=== PATIENT | female | born 1990 | race Caucasian/White ===

== ENCOUNTER → 2021-07-24 11:14 | Outpatient (CLI) | payer OTHER, SELFPAY ==
--- NOTE | ~2021-07-24 | US_ITS ---
EXAMINATION: US OB <= 14 weeks fetus DATE: 07/24/2021 12:07 INDICATION: First trimester dating TECHNIQUE: Real-time pelvic transabdominal and transvaginal ultrasound was performed. COMPARISON: None. FINDINGS: The uterus measures 9.5 x 6.2 x 6.8 cm. There is an intrauterine gestational sac. A yolk s ac is identified. heart motion is identified measuring 177 beats per minute (bpm) by M-mode Dop pler. The crown rump length measures 2.5 cm , which correlates with an estimated gestational ag e of 9 weeks and 1 day(s) (+/-) 6 day(s). The ovaries are not visualized however no adnexal abnormality is seen. There is no free fluid in the pelvis. IMPRESSION: 1. Live intrauterine with an estimated gestational age of 9 weeks and 1 day(s) (+/-) 6 day( s) and an estimated delivery date of 02/25/2022. Reviewed, dictated and finalized at location B. IMPRESSION: 1. Live intrauterine with an estimated gestational age of 9 weeks and 1 day(s) (+/-) 6 day(s) and an estimated delivery date of 02/25/2022.
== END ==
PROVIDERS: Visit Provider Obstetrics & Gynecology
DX: Z36.89 Encounter for other specified antenatal screening (principal); Z3A.09 9 weeks gestation of pregnancy
CPT/HCPCS: 76801

== ENCOUNTER 2021-09-08 08:34 | Outpatient (CLI) | payer OTHER, SELFPAY ==
--- NOTE | ~2021-09-08 | US_ITS ---
EXAMINATION: US OB follow up DATE: 09/08/2021 09:19 INDICATION: Bleeding in . TECHNIQUE: Real-time ultrasound of the pelvis was performed. COMPARISON: Ultrasound 07/24/2021 FINDINGS: There is a single living fetus in breech presentation. The placenta is posterior. heart rate i s 163 beats per minute (bpm). The amniotic fluid volume is subjectively normal. The following biometric data were obtained: Biparietal diameter (BPD): 3.2 cm; head circumference (HC): 12.0 cm; abdominal circumference (AC): 10 .2 cm; femur length (FL): 2.0 cm. These measurements are concordant. Estimated weight is 144 g +/- 22 g, which correlates with the 65th percentile when 02/25/22 is us ed as estimated date of delivery. As single measurements, these parameters are each equal to the following estimated gestational ages: BPD: 16 weeks 0 days. HC: 16 weeks 0 days. AC: 16 weeks 1 days. FL: 16 weeks 0 days. estimated gestational age based solely on measurements from this exam is 16 weeks 0 days +/- 1 weeks 1 days. IMPRESSION: 1. Single living fetus in breech presentation. 2. Estimated weight is 144 g +/- 22 g, which correlates with the 65th percentile when 02/25/22 i s used as estimated date of delivery. This date was set by ultrasound on 07/24/2021. Reviewed, dictated and finalized at location A. UNLOADER IMPRESSION: 1. Single living fetus in breech presentation. 2. Estimated weight is 144 g +/- 22 g, which correlates with the 65th pe rcentile when 02/25/22 is used as estimated date of delivery. This date was set b y ultrasound on 07/24/2021.
== END 2021-09-08 08:35 | disposition home or self-care (01) ==
PROVIDERS: PCP Family Medicine; Visit Provider Obstetrics & Gynecology
DX: O26.852 Spotting complicating pregnancy, second trimester (principal)
CPT/HCPCS: 36415; 76816; 85461; 90384; 96372; J2790

== ENCOUNTER 2021-09-08 10:07 | Outpatient (RCR) | payer OTHER, SELFPAY ==
[2021-09-08] MEDS: RHO(D) IMMUNE GLOBULIN 300 MCG/2 ML SYRINGE IM (17:25)
== END 2021-09-22 10:20 | disposition home or self-care (01) ==
LOC: ANHLAB 10:07
PROVIDERS: PCP Family Medicine; Visit Provider Obstetrics & Gynecology
DX: O26.852 Spotting complicating pregnancy, second trimester (principal); Z29.13 Encounter for prophylactic Rho(D) immune globulin; O36.0190 Maternal care for anti-D [Rh] antibodies, unspecified trimester, not applicable or unspecified; Z3A.00 Weeks of gestation of pregnancy not specified
CPT/HCPCS: 36415; 85461; 90384; 96372; J2790

== ENCOUNTER → 2021-10-02 08:22 | Outpatient (CLI) | payer OTHER, SELFPAY ==
--- NOTE | ~2021-10-02 | US_ITS ---
EXAMINATION: US OB /maternal detail EXAM DATE: 10/02/2021 09:12 INDICATION: Anatomy. 2nd trimester. TECHNIQUE: Pelvic obstetrical transabdominal sonogram was performed by a technologist. There are mu ltiple grayscale and Doppler images available for interpretation. Comparison is made to prior examina tion from 09/08/2021. FINDINGS: There is a single fetus identified in vertex presentation with a heart rate of 154 beats pe r minute. The placenta is located in the posterior position. There is no sonographic evidence of ret roplacental hemorrhage identified. There is subjectively expected amount of amniotic fluid. Placenta l margin to internal cervical os distance is 4.5 cm. BIOMETRIC DATA: Biparietal diameter (BPD): 4.3 cm ----------------> 19 weeks 0 days. Head circumference (HC): 16.5 cm ----------------> 19 weeks 1 day. Abdominal circumference (AC): 13.8 cm ----------> 19 weeks 1 day. Femur length (FL): 2.9 cm --------------------------> 18 weeks 6 days. These measurements are concordant. HC/AC ratio is 1.20 (The 5th -- 95th percentile range is 1.09-1.26. Estimated weight is 272 g +/- 41 g. This is the 41st percentile when the currently reported cl inical gestation age 19 weeks 1 day, clinical estimated date of delivery (CODY-OPE) 02/25/2022 is used. estimated gestational age based on measurements from this exam is 19 weeks 0 days, with an lisa mated date of delivery (CODY-AUA) 02/26. ANATOMIC SURVEY: Following anatomy not well evaluated: Heart, lips/face. The following anatomy is identified and is sonographically normal in appearance: Cerebral ventricles Cavum septum pellucidum Cerebellum Cisterna magna Nuchal fold CTL-spine Diaphragm Stomach Kidneys Bladder Three-vessel cord Cord insertion Extremities IMPRESSION: 1. Single fetus in vertex presentation with heart rate 154 beats per minute. 2. Estimated weight of 272 grams, 41st percentile using the currently reported clinical gestat ion age of 19 weeks 1 day, CODY(OPE) 02/25. 3. Incomplete anatomic survey. Visualized anatomy normal. Reviewed, dictated and finalized at location A. PACK WORKER IMPRESSION: 1. Single fetus in vertex presentation with heart rate 154 beats per minute. 2. Estimated weight of 272 grams, 41st percentile using the currently re ported clinical gestation age of 19 weeks 1 day, CODY(OPE) /. 3. Incomplete anatomic survey. Visualized anatomy normal.
== END ==
PROVIDERS: Visit Provider Obstetrics & Gynecology
DX: Z36.9 Encounter for antenatal screening, unspecified (principal); Z3A.19 19 weeks gestation of pregnancy
CPT/HCPCS: 76805

== ENCOUNTER → 2021-10-23 15:58 | Outpatient (CLI) | payer OTHER, SELFPAY ==
--- NOTE | ~2021-10-23 | US_ITS ---
US OB follow up DATE: 10/23/2021 16:20 INDICATION: Follow-up limited examination for anatomy not well visualized on 10/02/2021 obstetrical ul trasound examination TECHNIQUE: Real-time imaging directed toward the upper lip heart COMPARISON: 10/02/2019 obstetrical ultrasound FINDINGS: Fetus is in breech presentation, longitudinal lie. Posterior placenta, lower margin 5.9 cm above the internal os. Subjectively normal amount of amniotic fluid. Four-chamber heart is demonstrated. The left and right ventricular outflow tracts appear normal . lips and nose appear within normal limits. IMPRESSION: Four-chamber heart and normal left and right ventricular outflow tracts Normal appearance of nose and lips Reviewed, dictated and finalized at Location A. Reviewed, dictated and finalized at location B. LSTERY HANDLER IMPRESSION: Four-chamber heart and normal left and right ventricular outf low tracts Normal appearance of nose and lips
== END ==
PROVIDERS: Visit Provider Obstetrics & Gynecology Gynecology
DX: Z36.2 Encounter for other antenatal screening follow-up (principal)
CPT/HCPCS: 76816

== ENCOUNTER 2021-12-04 09:15 | Outpatient (CLI) | payer OTHER, SELFPAY ==
[2021-12-04] MEDS: RHO(D) IMMUNE GLOBULIN 300 MCG/2 ML SYRINGE IM (17:26)
== END 2021-12-04 09:16 | disposition home or self-care (01) ==
LOC: ANHLAB 09:18
PROVIDERS: Visit Provider Obstetrics & Gynecology Gynecology
DX: Z34.03 Encounter for supervision of normal first pregnancy, third trimester (principal)
CPT/HCPCS: 36415; 85461; 90384; 96372; J2790

== ENCOUNTER → 2022-01-29 09:53 | Outpatient (CLI) | payer OTHER, SELFPAY ==
--- NOTE | ~2022-01-29 | US_ITS ---
EXAMINATION: US OB follow up DATE: 01/29/2022 10:25 INDICATION: Size less than dates during third trimester TECHNIQUE: Real-time ultrasound of the pelvis was performed. The interpreting radiologist was not pre sent for the study. COMPARISON: None. FINDINGS: There is a single living fetus in vertex presentation. The placenta is fundal. cardia c activity and movement are noted. heart rate is 146 beats per minute (bpm). The amniotic fluid index is 16.4 cm which is normal (normal range: 7.7 cm to 24.9 cm). The following biometric data were obtained: Biparietal diameter (BPD): 9.0 cm; head circumference (HC): 32.1 cm; abdominal circumference (AC): 31 .6 cm; femur length (FL): 6.9 cm. These measurements are concordant. Estimated weight is 2754 g +/- 413 g, which correlates with the 40th percentile when 02/25/2022 i s used as estimated date of delivery. As single measurements, these parameters are each equal to the following estimated gestational ages w ith ranges of +/- 2 standard deviations: BPD: 36 weeks 5 days ( 33 weeks 4 days - 39 weeks 6 days). HC: 36 weeks 1 days ( 33 weeks 4 days - 38 weeks 6 days). AC: 35 weeks 4 days ( 32 weeks 4 days - 38 weeks 3 days). FL: 35 weeks 4 days ( 32 weeks 4 days - 38 weeks 4 days). estimated gestational age based solely on measurements from this exam is 36 weeks 0 days +/- 2 weeks 4 days. IMPRESSION: 1. Single living fetus in vertex presentation. 2. Estimated weight is 2754 g +/- 413 g, which correlates with the 40th percentile when 2 is used as estimated date of delivery. 3. Normal amniotic fluid index. Reviewed, dictated and finalized at location A. IMPRESSION: 1. Single living fetus in vertex presentation. 2. Estimated weight is 2754 g +/- 413 g, which correlates with the 40th p ercentile when 02/25/2022 is used as estimated date of delivery. 3. Normal amniotic fluid index.
== END ==
PROVIDERS: PCP Family Medicine; Visit Provider Advanced Practice Midwife
DX: O36.5930 Maternal care for other known or suspected poor fetal growth, third trimester, not applicable or unspecified (principal); Z3A.36 36 weeks gestation of pregnancy
CPT/HCPCS: 76816

== ENCOUNTER 2022-02-14 06:23 | Inpatient (IN) | payer OTHER, SELFPAY ==
[2022-02-14] VITALS (135 sets, daily range): BP systolic 91–133; BP diastolic 26–97; PULSE 59–143; RESP 18; TEMP 35.6–37; O2SAT 98–100; BMI 30.7
--- NOTE | 2022-02-14 07:25 | LDADM ---
This patient, Jose Roberto Mohan, was admitted to Labor/Delivery/Recovery 108 on 02/14/22 at 06:23. Plans for labor, pain management and were discussed with patient. Patient/family oriented to hospital policies and general routines including ID bracelet, bed and alarms, visiting hours, pain management, procedures, bathroom and other care routines, personal items, smoking policy, room service/diet and guest tray routines, security routines, and visiting hours. Patient/Family are encouraged to report perceived risks to care and to ask questions if they do not understand what they are told or what they should do. See OBIX for further documentation.
[2022-02-14] MEDS: LACTATED RINGERS 1,000 ML 125 ML IV CONT ×3 (07:47→15:56)
[2022-02-14] MEDS: OXYTOCIN 30 UNITS/NS 500 ML 30 UNITS/500 ML BAG 4 UNITS IV CONT (07:50)
[2022-02-14 08:02] LABS: Basophils Percent Auto 0.4 % (0.2-1.2); Eosinophils Absolute Auto 0.1 K/mm3 (0-0.3); Eosinophils Percent Auto 0.9 % (0-4.4); Hematocrit 41.6 % (37.0-47.0); Hemoglobin 13.9 g/dL (12.0-15.0); Immature Granulocyte Absolute 0.03 K/mm3 (0.00-0.031); Immature Granulocyte Percent A 0.4 % (0-0.5); Lymphocytes Absolute Auto 1.83 K/mm3 (0.9-3.2); Lymphocytes Percent Auto 23.2 % (18.3-44.2); Mean Corpuscular HGB Conc 33.4 g/dl (32-36); Mean Corpuscular Hemoglobin 31.2 pg (26-34); Mean Corpuscular Volume 93.3 fl (80-100); Mean Platelet Volume 11.1 fl (7.4-10.4); Monocytes Absolute Auto 0.6 K/mm3 (0.1-0.6); Monocytes Percent Auto 7.9 % (2.6-8.5); Neutrophils Absolute Auto 5.3 K/mm3 (1.3-6.7); Neutrophils Percent Auto 67.2 % (45.5-73.1); Platelet Count Result 165 k/mm3 (150-375); Red Blood Count 4.46 M/mm3 (4.2-5.4); White Blood Count 7.9 K/mm3 (4.5-10.0)
--- NOTE | 2022-02-14 08:24 | WPDOBADMIT ---
Obstetrics - Admit Note Admission Note: record reviewed. No pertinent additions to the history and/or any subsequent changes in the physical findings that are not consistent with the expected course of the were found. Additions to the history and/or subsequent changes in the physical findings follow. Pt arrived with SROM with clear fluid at 0500 this am. Not hiram. FHTs Cat 1. SVE in office was 3cm. Plan for pitocin.
[2022-02-14 09:03] LABS: HIV 1/2 Ab P24 Ag Result Negative (Negative)
--- NOTE | 2022-02-14 14:06 | WPDANESEPPF ---
Anes - Initial Pre Proc Eval Procedure: labor epidural Date/Time: 02/14/22 14:06 Surgeon: Ketty Main MD Pre Op Diagnosis: labor pain Pre Op Diagnosis: ROM Patient Data Age: 31 Gender: F Height: 1.6 m Weight: 78.5 kg Last Vital Signs Temp 35.8 C L 02/14/22 11:37 Pulse 91 02/14/22 14:05 BP 120/74 02/14/22 14:05 Pulse Ox 100 02/14/22 14:01 O2 Del Method Room Air 02/14/22 07:25 Allergies Allergy/AdvReac Type Severity Reaction Status Date / Time No Known Allergies Allergy Verified 09/04/21 08:46 Home Medications Medication Instructions Recorded Confirmed Type budesonide 32 mcg/actuation nasal 1 spray intranasal DAILY 09/04/21 02/03/22 History spray cholecalciferol (vitamin D3) 1,250 1,250 mcg PO Q14D 09/04/21 02/14/22 History mcg (50,000 unit) capsule vit no.95-ferrous 1 tablet PO DAILY 02/03/22 02/03/22 History fumarate 28 mg-folic acid 800 mcg tablet () sertraline 25 mg tablet 25 mg PO HS 02/14/22 02/14/22 History Laboratory Tests 02/14/22 02/14/22 02/14/22 07:33 07:33 07:33 WBC RBC Hgb Hct MCV MCH MCHC RDW Plt Count MPV Immature Gran % (Auto) Neut % (Auto) Lymph % (Auto) Clayton % (Auto) Eos % (Auto) Baso % (Auto) Lymph # (Auto) [place] # (Auto) Eos # (Auto) Baso # (Auto) Abs Immat Gran (auto) Absolute Neuts (auto) Absolute Nucleated RBC Nucleated RBC % RPR Pending HIV 1&2 Ab/P24 Ag 4thGn Negative (Negative) Blood Type B Negative Antibody Screen Negative 02/14/22 07:34 WBC 7.9 K/mm3 K/mm3 (4.5-10.0) RBC 4.46 M/mm3 M/mm3 (4.2-5.4) Hgb 13.9 g/dL g/dL (12.0-15.0) Hct 41.6 % % (37.0-47.0) MCV 93.3 fl fl (80-100) MCH 31.2 pg pg (26-34) MCHC 33.4 g/dl g/dl (32-36) RDW 13.0 % % (11.5-14.5) Plt Count 165 k/mm3 k/mm3 (150-375) MPV 11.1 fl H fl (7.4-10.4) Immature Gran % (Auto) 0.4 % % (0-0.5) Neut % (Auto) 67.2 % % (45.5-73.1) Lymph % (Auto) 23.2 % % (18.3-44.2) Clayton % (Auto) 7.9 % % (2.6-8.5) Eos % (Auto) 0.9 % % (0-4.4) Baso % (Auto) 0.4 % % (0.2-1.2) Lymph # (Auto) 1.83 K/mm3 K/mm3 (0.9-3.2) Clayton # (Auto) 0.6 K/mm3 K/mm3 (0.1-0.6) Eos # (Auto) 0.1 K/mm3 K/mm3 (0-0.3) Baso # (Auto) 0.0 K/mm3 K/mm3 (0.0-0.1) Abs Immat Gran (auto) 0.03 K/mm3 K/mm3 (0.00-0.031) Absolute Neuts (auto) 5.3 K/mm3 K/mm3 (1.3-6.7) Absolute Nucleated RBC 0.0 K/mm3 K/mm3 (0.0-0.012) Nucleated RBC % 0.0 % % (0.0-0.2) RPR HIV 1&2 Ab/P24 Ag 4thGn Blood Type Antibody Screen Patient hx anesthesia problems: none Family hx anesthesia problems: none Results Review: All pre-operative results and documents have been reviewed as part of the pre-operative evaluation. [facility] Family History Family History (Updated 02/14/22 @ 08:04 by Fátima Mar RN) Mother Depression Hypertension Grandparent Malignant neoplasm of prostate Family history of coronary artery disease Hypertension Father Hypertension Atrial fibrillation Social History Social History (Updated 09/04/21 @ 08:48 by Heidi Patino CMA) Smoking status: Never smoker Second hand tobacco smoke exposure: No Alcohol intake: current Drinks per week: 3 Substance use: never Spiritual care concerns: No Anes - Eval Final PreProcedure Day of Procedure 02/14/22 14:06 Patient weight: obese ASA classification: II Anesthesia type and monitoring: regional epidural and standard monitoring Results Review: All pre-operative results and documents have been reviewed as part of
[2022-02-14 14:32] LABS: Rapid Plasma Reagin Non-Reactive (NonReactive)
--- NOTE | 2022-02-14 19:25 | PM.OBPRVD ---
OB - Delivery Note Procedure Delivery date: 02/14/22 Delivery augmentation: Pitocin Delivery monitor: External FHT and External Uterine Route of delivery: Laceration Description: Perineal - 2nd Degree Delivery repair: vicryl (3-0) Specimen: No Quantitative Blood Loss (ml): 150 Anesthesia type: Epidural Disposition: Floor Baby Date of : 02/14/22 Weeks of gestation at delivery: 38 Infant gender: Male Weight (pounds): 6 Weight (ounces): 13 presentation: vertex position: Right Occiput Anterior Placenta delivery description: Spontaneous Cord Vessel Description: 3 Vessels score one minute: 9 score five minutes: 9
--- NOTE | 2022-02-14 19:28 | PM.OBDSVD ---
DS: Admitting Diagnosis Discharge Date 02/16/22 Admitting Diagnosis IUP 38 3/ with SROM DS: Discharge Diagnosis Discharge Diagnosis (1) (normal spontaneous vaginal delivery): Code(s): O80 - Encounter for full-term uncomplicated delivery Status: Acute OB - DS: Summary OB Procedures : Ultrasound OB Procedures Intrapartum: Spontaneous Vag Delivery OB Procedures: : None Peripartum Data Infant Delivery Method: Natural Vaginal Laceration Description: Perineal - 2nd Degree Status at Discharge Functional status at discharge: independent ambulation Overall status at discharge: patient is progressing back to baseline Time Spent with Patient Time attestation: Total time spent providing and/or coordinating discharge services: DS: Data Data Completed and Pending Labs on day of discharge: Labs from last 24 hours 02/14/22 02/14/22 02/14/22 07:34 07:33 07:33 WBC 7.9 RBC 4.46 Hgb 13.9 Hct 41.6 MCV 93.3 MCH 31.2 MCHC 33.4 RDW 13.0 Plt Count 165 MPV 11.1 H Immature Gran % (Auto) 0.4 Neut % (Auto) 67.2 Lymph % (Auto) 23.2 Waller % (Auto) 7.9 Eos % (Auto) 0.9 Baso % (Auto) 0.4 Lymph # (Auto) 1.83 Waller # (Auto) 0.6 Eos # (Auto) 0.1 Baso # (Auto) 0.0 Abs Immat Gran (auto) 0.03 Absolute Neuts (auto) 5.3 Absolute Nucleated RBC 0.0 Nucleated RBC % 0.0 RPR Non-reactive HIV 1&2 Ab/P24 Ag 4thGn Blood Type B Negative Antibody Screen Negative 02/14/22 07:33 WBC RBC Hgb Hct MCV MCH MCHC RDW Plt Count MPV Immature Gran % (Auto) Neut % (Auto) Lymph % (Auto) [place]er % (Auto) Eos % (Auto) Baso % (Auto) Lymph # (Auto) [place] # (Auto) Eos # (Auto) Baso # (Auto) Abs Immat Gran (auto) Absolute Neuts (auto) Absolute Nucleated RBC Nucleated RBC % RPR HIV 1&2 Ab/P24 Ag 4thGn Negative Blood Type Antibody Screen Discharge Plan Discharge Attending physician on discharge: Ketty Main Discharging Clinician: Ketty Main Anticipated Discharge Date/Time: 02/16/22 19:31 Patient Disposition: Home, Self-Care Activity: may shower and pelvic rest Diet: regular Patient Instructions: Antibiotic Form Stand Alone Forms: General Discharge Information Follow-up/Referrals: Ketty Main MD [Physician] - 6 Weeks Discharge Medications: Continued budesonide 32 mcg/actuation spray,non-aerosol 1 spray intranasal DAILY Rx Instructions: administer into each nostril cholecalciferol (vitamin D3) 1,250 mcg (50,000 unit) capsule 1,250 mcg PO Q14D PNV cmb#95-ferrous fumarate-FA [] 28 mg iron- 800 mcg Tablet 1 tablet PO DAILY sertraline 25 mg tablet 25 mg PO HS Rx Instructions: TAKE 1 TABLET BY MOUTH DAILY Date of admission: 02/14/22 06:23 Primary Care Provider: Caio Gage Admitting Provider: Ketty Main Attending physician on admission: Ketty Main Condition: Stable Health Concerns: DepoProvera prior to Discharge
[2022-02-14] MEDS: OXYTOCIN 30 UNITS/NS 500 ML 30 UNITS/500 ML BAG 125 UNITS IV CONT (19:34)
--- NOTE | 2022-02-14 22:00 | OBPPTRN ---
Patient transferred to post room #279 via W/C. Support person present. Oriented to unit, room, information board, rooming in, admission packet and security measures. Patient verbalizes understanding.
[2022-02-15] VITALS (8 sets, daily range): BP systolic 112–128; BP diastolic 72–90; PULSE 70–92; RESP 16–18; TEMP 36.3–37.7; O2SAT 99
[2022-02-15] MEDS: SERTRALINE HCL 25 MG TABLET PO ×2 (00:08→20:10)
[2022-02-15] MEDS: IBUPROFEN 600 MG TABLET PO ×4 (00:08→20:10)
[2022-02-15] MEDS: ACETAMINOPHEN 325 MG TABLET 650 MG PO (04:07)
[2022-02-15 05:23] LABS: Hematocrit 36.9 % (37.0-47.0); Hemoglobin 12.6 g/dL (12.0-15.0)
[2022-02-15] MEDS: DOCUSATE SODIUM 100 MG CAPSULE PO (08:16)
[2022-02-15] MEDS: MULTIVIT/MIN/PREN/FOL AC/IRON TABLET 1 TAB PO (08:16)
--- NOTE | 2022-02-15 09:22 | WPDANLDPN2 ---
Anes-Prog Note L&D Date/Time: 02/15/22 09:22 Comfortable throughout: labor and delivery Neuraxial method: epidural Epidural/Spinal procedure site: clean & non-tender Neuro status: Neuro function grossly intact. Cardiovascular status: normal Respiratory status: normal Airway patency: baseline Mental status: baseline Post-Op hydration status: normal Vital Signs: Last Vital Signs Temp 36.8 C 02/15/22 04:13 Pulse 70 02/15/22 04:13 Resp 18 02/15/22 04:13 BP 128/90 02/15/22 04:13 Pulse Ox 100 02/14/22 18:51 O2 Del Method Room Air 02/14/22 22:05 Pain score (VAS): 10/02 I/O: Intake & Output 02/14/22 02/15/22 02/15/22 23:59 07:59 15:59 Intake Total 600 Output Total 265 Balance 335 Post-procedural complaints: none Patient feedback: Patient satisfied with anesthetic care.
--- NOTE | 2022-02-15 14:41 | PM.OBPNVD ---
OB - PN: Subj Subjective Date/time seen: 02/15/22 14:41 Patient comments: no complaints and pain well controlled baby status: doing well OB - PN: Obj Data Labs CBC & Chem 7: 02/15/22 04:13 Labs: Laboratory Results - last 24 hr 02/15/22 02/15/22 04:13 04:13 Hgb 12.6 Hct 36.9 L Blood Type B Negative Antibody Screen TNP Screen Negative Baby's Blood Type B pos Baby's DAYANNA Negative Doses of RhIg Required 1 OB - PN A/P Plan day: 1 Plan: routine care Time Spent With Patient Time: Total time spent is greater than 50% in coordination of care (as documented) at patient's floor/unit and/or counseling patient: Exam : Bimanual exam- vagina & uterus: other (Uterus firm, nt @U)
--- NOTE | 2022-02-15 15:19 | PC.NURSE ---
[id number] Introductions were made, then consulted with patient to assess needs related to . Mother led the conversation with her experience feeding her so far. Mother works well with her with encouragement and education. Encouraged understanding of the benefits of skin to skin (unwrapping and placing vertically on her chest), responsive feeding and how to watch for early feeding signs, frequency of feeding on demand about every 8-12 times in 24 hours (every 2-3 hours), milk production, duration of feeding, signs of adequate intake/output and how to record on the feeding sheet. Reviewed positioning and ear, shoulder, hip alignment, supporting the breast, asymmetrical latch (off-center), and leading with the chin with a big open side gape. Infant latched optimally to the right breast in football position. Education given to mother of how to visualize suck/swallow ratios and drinking at the breast. was able to maintain latch without discomfort to mother. Nipple care reviewed with optimal latch and good positioning. Reminding mother of comfort measures of healing with a warm and wet washcloth to rinse breast, then leave open to air-dry as needed. Reviewed good handwashing when or touching the breast/nipples to prevent infection. Resources used to facilitate learning were used with the visual handouts/ tool/mom and baby guide. Mother voiced understanding of responsive feedings, stimulating with skin to skin, hand expressed colostrum, touch, talking to infant to encourage if it has been 2 -3 hours since the start of the last , to call if does not latch or there is discomfort with . Reported to the primary RN.
[2022-02-15] MEDS: RHO(D) IMMUNE GLOBULIN 300 MCG/2 ML SYRINGE IM (17:42)
[2022-02-16] MEDS: IBUPROFEN 600 MG TABLET PO (05:37)
[2022-02-16 07:30] VITALS: BP 98/68; PULSE 79; RESP 16; TEMP 36.9; O2SAT 97
[2022-02-16 08:00] VITALS: PULSE 79; RESP 16; O2SAT 97
--- NOTE | 2022-02-16 08:33 | PM.OBPNVD ---
OB - PN: Subj Subjective Date/time seen: 02/16/22 08:33 Patient comments: no complaints and pain well controlled baby status: doing well OB - PN: Obj Data Labs CBC & Chem 7: 02/15/22 04:13 Labs: Laboratory Results - last 24 hr 02/15/22 04:13 Blood Type B Negative Antibody Screen TNP Screen Negative Baby's Blood Type B pos Baby's DAYANNA Negative Doses of RhIg Required 1 OB - PN A/P Plan day: 2 Plan: routine care, discharge home, follow up 6 weeks and other (Plans DepoProvera) Time Spent With Patient Time: Total time spent is greater than 50% in coordination of care (as documented) at patient's floor/unit and/or counseling patient: Exam : Bimanual exam- vagina & uterus: other (Uterus firm, nt @U)
--- NOTE | 2022-02-16 10:02 | PC.NURSE ---
Patient viewed the discharge video Mother & Baby Care, The First Two Weeks . Patient was given the opportunity and encouraged to ask questions. Patient verbalized understanding of information shared and has been given the mother/baby guide for home reference.
[2022-02-16] MEDS: DOCUSATE SODIUM 100 MG CAPSULE PO (11:04)
[2022-02-16] MEDS: MULTIVIT/MIN/PREN/FOL AC/IRON TABLET 1 TAB PO (11:04)
[2022-02-16] MEDS: medroxyPROGESTERone ACETATE IM 150 MG/ML SYR IM (11:04)
--- NOTE | 2022-02-16 11:17 | PC.NURSE ---
[id number] Mother led the conversation with her experience and plan to feed her so far and her ability to independently latch optimally without discomfort and pumps as needed for milk production stimulation. Mother is feeding appropriately for growth of infant and understands stimulating to eat if needed. Infant has had appropriate feedings in the last 24 hours meets the outcomes for weight, output and jaundice at this time. Mother states she is confident to continue effectively her at home or when to call for assistance and denies any additional assistance or education at this time. Reinforced understanding of milk production, transition of milk, signs of adequate intake, prevention/relief of engorgement, responsive after visualizing feeding cues, the different methods of stimulating infant to breastfeed 2-3 hours after the start of the last feeding, community resources, medication information reviewed per [employer] and when to call a provider using the resource of the mom and baby guide/[facility] website. Mother voiced understanding of the education shared. Reported to the primary RN.
[2022-02-19 11:29] VITALS: BP 117/80; PULSE 77; RESP 20; TEMP 36.9; O2SAT 100
== END 2022-02-16 14:10 | disposition home or self-care (01) | DRG 807 ==
LOC: ANHLDR 19:31 → ANHOB2 22:03
PROVIDERS: Admitting Provider Obstetrics & Gynecology Gynecology; PCP Family Medicine; Visit Provider Obstetrics & Gynecology Gynecology
DX: O70.1 Second degree perineal laceration during delivery (principal); Z37.0 Single live birth; Z3A.38 38 weeks gestation of pregnancy
CPT/HCPCS: 36415; 84112; 85014; 85018; 85025; 85461; 86592; 86703; 86850; 86900; 86901; 90384; A9270; G0432; J1050; J2590; J2790; J2795; J7120

== ENCOUNTER → 2022-11-21 08:18 | Outpatient (CLI) | payer OTHER, SELFPAY ==
--- NOTE | ~2022-11-21 | MMUS_ITS ---
EXAMINATION: MM diagnostic dina RT w margoth, US breast RT complete HISTORY: Right axillary lump, intermittent pain TECHNIQUE: Full field and spot ML, MLO and CC, axillary 3-D tomosynthesis images of the right breast were performed and synthetic 2-D images were generated. CAD analysis was submitted and interpreted. H igh resolution complete right breast ultrasound examination including all 4 quadrants and subareolar area and right axillary region was performed. COMPARISON: 08/07/2018 right diagnostic mammogram 11/19/2013 right upper outer quadrant breast ultrasound examination BREAST PARENCHYMAL COMPOSITION: The breasts are heterogeneously dense, which may obscure small masses . FINDINGS: MAMMOGRAPHIC FINDINGS: No suspicious mass or architectural distortion, malignant calcification, skin thickening or retractio n or significant new or developing density is detected. ULTRASOUND: No right breast mass, suspicious shadowing, cyst or other significant sonographic abnormality. Metaca rpal benign-appearing lymph nodes are noted in the right axilla, measuring 3.9 x 5.1 mm and 4.4 x 8.5 mm. IMPRESSION: 1. No mammographic evidence of malignancy 2. Routine mammographic screening beginning at age 40 is recommended BI-RADS Category 1: Negative Reviewed, dictated and finalized at location A. MILL OPERATOR IMPRESSION: 1. No mammographic evidence of malignancy 2. Routine mammographic screening beginning at age 40 is recommended BI-RADS Category 1: Negative
== END ==
PROVIDERS: PCP Physician Assistant; Visit Provider Physician Assistant
DX: R22.31 Localized swelling, mass and lump, right upper limb (principal)
CPT/HCPCS: 76641; 77061; 77065; G0279

== ENCOUNTER 2023-05-13 09:03 | Outpatient (CLI) | payer OTHER, SELFPAY ==
[2023-05-13 11:39] LABS: Basophils Percent Auto 0.8 % (0.2-1.2); Eosinophils Absolute Auto 0.2 K/mm3 (0-0.3); Eosinophils Percent Auto 5.1 % (0-4.4); Hematocrit 44.6 % (37.0-47.0); Hemoglobin 14.4 g/dL (12.0-15.0); Lymphocytes Absolute Auto 1.77 K/mm3 (0.9-3.2); Lymphocytes Percent Auto 45.2 % (18.3-44.2); Mean Corpuscular HGB Conc 32.3 g/dl (32-36); Mean Corpuscular Hemoglobin 29.3 pg (26-34); Mean Corpuscular Volume 90.8 fl (80-100); Mean Platelet Volume 10.6 fl (7.4-10.4); Monocytes Absolute Auto 0.3 K/mm3 (0.1-0.6); Monocytes Percent Auto 7.4 % (2.6-8.5); Neutrophils Absolute Auto 1.6 K/mm3 (1.3-6.7); Neutrophils Percent Auto 41.5 % (45.5-73.1); Platelet Count Result 179 k/mm3 (150-375); Red Blood Count 4.91 M/mm3 (4.2-5.4); Red Cell Distribution Width 12.9 % (11.5-14.5); White Blood Count 3.9 K/mm3 (4.5-10.0)
[2023-05-13 11:47] LABS: Alanine Aminotransferase 21 U/L (6-35); Albumin Level 4.1 g/dL (3.5-5.1); Alkaline Phosphatase 80 U/L (38-126); Anion Gap 3 mmol/L (8-16); Aspartate Amino Transferase 32 U/L (14-36); Bilirubin,Total 0.5 mg/dL (0.2-1.3); Blood Urea Nitrogen 14 mg/dL (7-17); Calcium 8.8 mg/dL (8.4-10.2); Carbon Dioxide 31 mmol/L (22-30); Chloride 104 mmol/L (98-107); Cholesterol 197 mg/dL (0-200); Estimated Glomerular Filt Rate > 60; Glucose 92 mg/dL (65-110); HDL Direct 62 mg/dL; Potassium 4.3 mmol/L (3.4-5.0); Sodium 138 mmol/L (137-145); Triglycerides 68 mg/dL (<150)
[2023-05-13 11:59] LABS: LDL Cholesterol Direct 98 mg/dL
[2023-05-13 12:04] LABS: Vitamin D 25 Hydroxy 39.3 ng/mL
[2023-05-13 12:55] LABS: Folic Acid > 20.0 ng/mL (2.76->20)
== END 2023-05-13 09:04 | disposition home or self-care (01) ==
LOC: ANHGOSHLAB 09:05
PROVIDERS: PCP Physician Assistant; Visit Provider Physician Assistant
DX: E55.9 Vitamin D deficiency, unspecified (principal); F41.1 Generalized anxiety disorder; R22.31 Localized swelling, mass and lump, right upper limb; Z79.899 Other long term (current) drug therapy
CPT/HCPCS: 36415; 80053; 80061; 82306; 82607; 82746; 84443; 85025

== ENCOUNTER → 2023-05-13 09:11 | Outpatient (CLI) | payer OTHER, SELFPAY ==
--- NOTE | ~2023-05-13 | XR_ITS ---
XR lumbar spine 2-3V 05/13/2023 09:31 Indication: Low back pain with radiculopathy Procedure: 3 views lumbar spine Comparison: No prior studies for comparison. Findings: There is disc narrowing at all lumbar levels. There is grade 1 spondylolisthesis at L5-S1. No acute fracture or traumatic malalignment. Normal lumbar lordosis. Pedicles are otherwise intact. S acral foramen are symmetric. Impression: 1: Moderate lumbar spondylosis with grade 1 spondylolisthesis at L5-S1. Reviewed, dictated and finalized at location B. Impression: 1: Moderate lumbar spondylosis with grade 1 spondylolisthesis at L5-S1.
== END ==
PROVIDERS: PCP Physician Assistant; Visit Provider Physician Assistant
DX: M79.661 Pain in right lower leg (principal); M47.896 Other spondylosis, lumbar region
CPT/HCPCS: 72100

== ENCOUNTER → 2023-10-28 08:18 | Outpatient (CLI) | payer OTHER, SELFPAY ==
--- NOTE | ~2023-10-28 | MR_ITS ---
EXAMINATION: MR lumbar spine wo con DATE: 10/28/2023 09:04 INDICATION: Low back pain TECHNIQUE: Magnetic resonance imaging (MRI) of the lumbar spine was performed without intravenous con trast. Sequences included sagittal T2-weighted FSE, sagittal T2-weighted FS FSE, sagittal T1-weighted FSE, and axial T2-weighted FSE. COMPARISON: Lumbar spine radiographs dated 05/13/2023 FINDINGS: 2 mm retrolisthesis L4 on L5. There is chronic 20% posterior vertebral body height loss at L5. The mo re cephalad lumbar and lower thoracic vertebral body heights are normal. Normal marrow signal. Modera te disc height loss with annular fissure at L4-L5. Remaining discs demonstrate normal height and sign al. The conus medullaris terminates at L1. There is normal signal in the caudal spinal cord. Paravert ebral soft tissues are unremarkable. The following disc levels are specifically discussed: T12-L1: The disc does not extend beyond the endplate margin. There is mild bilateral facet joint oste oarthritis. There is no neural foraminal stenosis. There is no central canal stenosis. L1-L2: The disc does not extend beyond the endplate margin. There is mild right and minimal left face t joint osteoarthritis. There is no neural foraminal stenosis. There is no central canal stenosis. L2-L3: The disc does not extend beyond the endplate margin. There is minimal bilateral facet joint os teoarthritis. There is no neural foraminal stenosis. There is no central canal stenosis. L3-L4: The disc does not extend beyond the endplate margin. There is minimal right facet joint osteoa rthritis. There is no neural foraminal stenosis. There is no central canal stenosis. L4-L5: With annular fissure and moderate size central disc extrusion extending 1.5 cm left to right a nd measuring 9 mm craniocaudally and 7 mm AP. There is minimal bilateral facet joint osteoarthritis. There is mild bilateral neural foraminal stenosis. There is mild central canal stenosis along with mi ld narrowing of the lateral recesses, left greater than right. L5-S1: Disc is mildly bulging. There is mild bilateral facet joint osteoarthritis. There is mild bila teral neural foraminal stenosis. There is no central canal stenosis. IMPRESSION: 1. Moderate spondylosis at L4-L5 with moderate size central disc extrusion. Otherwise minimal lumbar spondylosis. Reviewed, dictated and finalized at location A. 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 Moderate spondylosis at L4-L5 with moderate size central disc extrusion. Oth erwise minimal lumbar spondylosis.
== END ==
PROVIDERS: PCP Physician Assistant; Visit Provider Physician Assistant
DX: M47.896 Other spondylosis, lumbar region (principal)
CPT/HCPCS: 72148

== ENCOUNTER 2023-12-30 14:13 | Outpatient (CLI) | payer OTHER, SELFPAY ==
--- NOTE | ~2023-12-30 | US_ITS ---
Pelvic ultrasound. Clinical History: First trimester , amenorrhea, establish dates and viability Technique: Realtime transabdominal and transvaginal scanning of the pelvis was performed. Color flow Doppler and Doppler spectral analysis were performed. Findings: The uterus is anteverted, and contains an intrauterine gestation. [place]-rump length of 1.9 cm corresponds to an estimated gestational age of 8 weeks 3 days. heart rate is 192 bpm. Yolk s ac present. The right ovary measures 3.6 x 2.4 x 2.1 cm. No significant right ovarian or adnexal mass is seen. The left ovary measures 2.3 x 2.0 x 1.8 cm. No significant left ovarian or adnexal mass is seen. Vascular flow present in both ovaries. There is no evidence of free fluid in the cul de sac. Impression: Live intrauterine gestation, with estimated gestational age of 8 weeks 3 days. heart rate is 19 2 bpm. Sonographic CODY is 08/07/2024. Reviewed, dictated and finalized at location . Impression: Live intrauterine gestation, with estimated gestational age of 8 weeks 3 days. heart rate is 192 bpm. Sonographic CODY is 08/07/2024.
== END 2023-12-30 14:14 ==
PROVIDERS: PCP Emergency Medicine; Visit Provider Obstetrics & Gynecology
DX: N91.2 Amenorrhea, unspecified (principal); Z3A.08 8 weeks gestation of pregnancy
CPT/HCPCS: 76801; 76817

== ENCOUNTER 2024-02-18 14:05 | Emergency (ER) | payer OTHER, SELFPAY ==
--- NOTE | ~2024-02-18 | US_ITS ---
US OB limited 02/18/2024 14:58 Indication: Vaginal bleeding Procedure: High-resolution Limited obstetrical ultrasound Comparison: 12/30/2023 Findings: There is a single living intrauterine in transverse presentation. heart rat e is 163 BPM. Amniotic fluid is subjectively normal. No evidence for placenta previa. The placenta is grossly normal, without suggestion of placenta abruption. However, ultrasound is not diagnostic of abruption since acute hemorrhage can be isoechoic to be placenta. Recommend clinical correlation. Impression: 1: Single living intrauterine in transverse left presentation. Reviewed, dictated and finalized at location B. Impression: 1: Single living intrauterine in transverse left presentation.
[2024-02-18 14:09] VITALS: BP 133/81; PULSE 82; RESP 16; TEMP 37.1; O2SAT 100
--- NOTE | 2024-02-18 14:19 | ED.FEMALEGU ---
HPI - Female Genitourinary General Chief complaint: Vaginal Bleeding Stated complaint: , vag bleed Time Seen by Provider: 02/18/24 14:18 History of Present Illness HPI Narrative: Patient is a 33-year-old female, approximately 16 weeks gestational age by first-trimester ultrasound and last menstrual period, here today with some pelvic floor discomfort and vaginal bleeding. She states that over the last weekend she was quite active, she describes some pelvic floor ?weakness ?. Or if she stands for long period of time she feels as though her organs may fall out of her body. She denies any cramping or pain. About 2 hours prior to arrival patient started having some vaginal spotting. She states that was initially a bit heavier but has significantly improved. She did have some vaginal spotting during her 1st , had to receive RhoGAM shot. 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 She denies any urinary symptoms. She denies any fever or chills. Related Data Home Medications Medication Instructions Recorded Confirmed budesonide 32 mcg/actuation nasal 1 spray intranasal DAILY 09/04/21 01/27/24 spray vit no.95-ferrous 1 tablet PO DAILY 02/03/22 01/27/24 fumarate 28 mg-folic acid 800 mcg tablet () Allergies Allergy/AdvReac Type Severity Reaction Status Date / Time No Known Allergies Allergy Verified 02/18/24 14:15 Review of Systems Review of Systems: All systems reviewed & are unremarkable except as noted in HPI and below PMFSH Past Medical History Medical History (Updated 02/18/24 @ 17:25 by Daphney Burroughs MD) Anxiety Surgical History Surgical History (Updated 12/30/23 @ 08:58 by Ruth Chatterjee MA) H/O foot surgery [place] teeth removed Family History Family History Mother Depression Hypertension Grandparent Malignant neoplasm of prostate Family history of coronary artery disease Hypertension Father Hypertension Atrial fibrillation Social History Social History (Updated 12/30/23 @ 08:59 by Ruth Chatterjee MA) Smoking status: Never smoker Second hand tobacco smoke exposure: No Substance use: never Substance use type: does not use Do You Feel Safe in your Home?: Yes Lack of Transportation: No Lack of Food: Never True Current Housing: I Have Housing Concerned About Future Housing: No Difficulty Paying Gas/Electric Bills: No Difficulty Paying for Meds: No Education: Master's Degree or Higher Difficulty w/ Childcare or Family Care: No Living arrangements: with family Occupation/Education: occupation Gender identity (if verbalized by the patient): Female Sexual Orientation (if Verbalized by the Patient): Straight or Heterosexual Spiritual care concerns: No Exam Narrative: GENERAL: Well-appearing, well-nourished, and in no acute distress. HEAD: Normocephalic, atraumatic. EYES: PERRLA and EOMI. ENT: Nares clear. Mucous membranes moist. NECK: Supple. CHEST: Clear to auscultation. No respiratory distress. HEART: Regular rate and rhythm. Normal peripheral pulses. ABDOMEN: Soft, nontender, nondistended. Gravid uterus. EXTREMITIES: Normal range of motion. No edema. SKIN: Warm, dry, no rash. NEURO: No focal deficits. Alert and oriented x3. PSYCH: Normal mood and affect. Course Course Emergency Course: Chart review performed, patient is reportedly 16 weeks , started having some pelvic floor pressure as well as some bright red spotting that began today. Reported . Triage vitals normal. OBGYN appointment with Dr. Carpio on 01/27/2024. OB ultrasound on 12/30/2023 shows a live intrauterine gestation, estimated age 8 weeks 3 days, heart rate 192. Patient seen evaluated, she is having some mild vaginal spotting which sh
[2024-02-18 15:13] LABS: Basophils Percent Auto 0.3 % (0.2-1.2); Eosinophils Absolute Auto 0.1 K/mm3 (0-0.3); Eosinophils Percent Auto 1.5 % (0-4.4); Hematocrit 38.9 % (37.0-47.0); Immature Granulocyte Absolute 0.02 K/mm3 (0.00-0.031); Immature Granulocyte Percent A 0.3 % (0-0.5); Lymphocytes Absolute Auto 1.65 K/mm3 (0.9-3.2); Lymphocytes Percent Auto 24.4 % (18.3-44.2); Mean Corpuscular HGB Conc 33.4 g/dl (32-36); Mean Corpuscular Volume 89.8 fl (80-100); Mean Platelet Volume 10.2 fl (7.4-10.4); Monocytes Absolute Auto 0.4 K/mm3 (0.1-0.6); Monocytes Percent Auto 5.6 % (2.6-8.5); Neutrophils Absolute Auto 4.6 K/mm3 (1.3-6.7); Neutrophils Percent Auto 67.9 % (45.5-73.1); Platelet Count Result 189 k/mm3 (150-375); Red Blood Count 4.33 M/mm3 (4.2-5.4); Red Cell Distribution Width 13.5 % (11.5-14.5); White Blood Count 6.8 K/mm3 (4.5-10.0)
[2024-02-18 15:22] LABS: INR 0.9; Partial Thromboplastin Time 23.2 Seconds (22.3-36.8); Prothrombin Time 12.9 Seconds (11.1-14.7)
[2024-02-18 15:23] LABS: Alanine Aminotransferase 17 U/L (6-35); Albumin Level 3.9 g/dL (3.5-5.1); Alkaline Phosphatase 58 U/L (38-126); Anion Gap 5 mmol/L (4-12); Aspartate Amino Transferase 23 U/L (14-36); Bilirubin,Total 0.4 mg/dL (0.2-1.3); Blood Urea Nitrogen 12 mg/dL (7-17); Calcium 8.4 mg/dL (8.4-10.2); Carbon Dioxide 23 mmol/L (22-30); Chloride 109 mmol/L (98-107); Estimated CRCL calculation 103 ml/min; Estimated Glomerular Filt Rate > 60; Glucose 93 mg/dL (65-110); Potassium 3.4 mmol/L (3.4-5.0); Sodium 137 mmol/L (137-145)
[2024-02-18 16:06] LABS: Appearance Urine Clear (Clear); Bilirubin Urine Negative (Negative); Blood Urine Negative (Negative); Color Urine Yellow (Yellow); Glucose Urine UA Negative (Negative); Ketones Urine Negative (Negative); Leukocyte Esterase Ur Negative LEU/UL (Negative); Nitrate Urine Negative (Negative); Protein Urine Negative (Negative); pH Urine 6.5 (5.0-9.0)
[2024-02-18 16:07] LABS: Add Urine Microscopic? NO; Specific Grav Ur 1.031 (1.001-1.035)
[2024-02-18 16:39] VITALS: BP 115/73; PULSE 73; RESP 15; O2SAT 100
[2024-02-18] MEDS: RHO(D) IMMUNE GLOBULIN 300 MCG/2 ML SYRINGE IM (16:44)
[2024-02-18 17:42] VITALS: BP 107/67; PULSE 80; RESP 16; TEMP 36.9; O2SAT 100
== END 2024-02-18 17:43 | disposition home or self-care (01) ==
PROVIDERS: Emergency Provider Student in an Organized Health Care Education/Training Program; PCP Emergency Medicine
DX: O20.9 Hemorrhage in early pregnancy, unspecified (principal); F41.9 Anxiety disorder, unspecified; O99.342 Other mental disorders complicating pregnancy, second trimester; Z3A.16 16 weeks gestation of pregnancy
CPT/HCPCS: 36415; 76815; 80053; 81003; 84702; 85025; 85461; 85610; 85730; 86850; 86900; 86901; 90384; 96372; 99284; J2790

== ENCOUNTER 2024-03-16 08:25 | Outpatient (CLI) | payer OTHER, SELFPAY ==
--- NOTE | ~2024-03-16 | US_ITS ---
EXAMINATION: US OB /maternal detail DATE: 03/16/2024 09:00 INDICATION: Encounter for supervision of normal . TECHNIQUE: Real-time ultrasound of the pelvis was performed. COMPARISON: Ultrasound 02/18/2024, 12/30/2023 FINDINGS: There is a single living fetus in breech presentation. The placenta is anterior. The cervical length is 2.8 cm on transabdominal images, which is normal. heart rate is 163 beats per minute (bpm). The amniotic fluid volume is subjectively normal. The following biometric data were obtained: Biparietal diameter (BPD): 4.5 cm; head circumference (HC): 17.3 cm; abdominal circumference (AC): 14 .8 cm; femur length (FL): 3.0 cm. These measurements are concordant. Estimated weight is 310 g +/- 47 g, which correlates with the 65th percentile when 08/07/24 is used as estimated date of delivery. As single measurements, these parameters are each equal to the following estimated gestational ages: BPD: 19 weeks 5 days. HC: 19 weeks 6 days. AC: 20 weeks 0 days. FL: 19 weeks 3 days. estimated gestational age based solely on measurements from this exam is 19 weeks 5 days +/- 1 weeks 3 days. The cerebral ventricles, cerebellum, cisterna magna, nuchal fold, and visualized portions of the spin e are normal. The heart is normal. The diaphragm, stomach, kidneys, and bladder are normal. There are two umbilical arteries to yield a 3-vessel cord. The cord insertion is normal. IMPRESSION: 1. Single living fetus in breech presentation. 2. Estimated weight is 310 g +/- 47 g, which correlates with the 65th percentile when 08/07/24 is used as estimated date of delivery. This date was set by ultrasound on 12/30/2023. 3. Normal anatomic survey. Reviewed, dictated and finalized at location A. IMPRESSION: 1. Single living fetus in breech presentation. 2. Estimated weight is 310 g +/- 47 g, which correlates with the 65th pe rcentile when 08/07/24 is used as estimated date of delivery. This date was set by ultrasound on 12/30/2023. 3. Normal anatomic survey.
== END 2024-03-16 08:26 ==
LOC: GOSHIMG 08:26
PROVIDERS: PCP Emergency Medicine; Visit Provider Student in an Organized Health Care Education/Training Program
DX: Z34.90 Encounter for supervision of normal pregnancy, unspecified, unspecified trimester (principal)
CPT/HCPCS: 76805

== ENCOUNTER 2024-05-11 08:23 | Outpatient (CLI) | payer OTHER, SELFPAY ==
--- NOTE | ~2024-05-11 | US_ITS ---
EXAMINATION: US OB follow up DATE: 05/11/2024 08:45 INDICATION: Spotting. Encounter for supervision of normal . TECHNIQUE: Real-time ultrasound of the pelvis was performed. COMPARISON: Ultrasound 03/16/2024, 12/30/2023 FINDINGS: There is a single living fetus in vertex presentation. The placenta is anterior. heart rate is 149 beats per minute (bpm). The amniotic fluid index is 14.6 cm, which is normal. The following biometric data were obtained: Biparietal diameter (BPD): 7.4 cm; head circumference (HC): 26.9 cm; abdominal circumference (AC): 24 .2 cm; femur length (FL): 5.1 cm. These measurements are discordant with low FL/BPD. Estimated weight is 1193 g +/- 179 g, which correlates with the 70th percentile when 08/07/24 i s used as estimated date of delivery. As single measurements, these parameters are each equal to the following estimated gestational ages: BPD: 29 weeks 5 days. HC: 29 weeks 3 days. AC: 28 weeks 3 days. FL: 27 weeks 2 days. estimated gestational age based solely on measurements from this exam is 28 weeks 5 days +/- 2 weeks 0 days. IMPRESSION: 1. Single living fetus in vertex presentation. 2. Estimated weight is 1193 g +/- 179 g, which correlates with the 70th percentile when is used as estimated date of delivery. This date was set by ultrasound on 12/30/2023. 3. Discordant biometrics with low FL/BPD ratio. Reviewed, dictated and finalized at location A. IMPRESSION: 1. Single living fetus in vertex presentation. 2. Estimated weight is 1193 g +/- 179 g, which correlates with the 70th percentile when 08/07/24 is used as estimated date of delivery. This date was s et by ultrasound on 12/30/2023. 3. Discordant biometrics with low FL/BPD ratio.
== END 2024-05-11 08:24 ==
LOC: GOSHIMG 08:24
PROVIDERS: PCP Obstetrics & Gynecology; Visit Provider Obstetrics & Gynecology
DX: Z34.93 Encounter for supervision of normal pregnancy, unspecified, third trimester (principal); Z3A.28 28 weeks gestation of pregnancy
CPT/HCPCS: 76816

== ENCOUNTER 2024-05-16 07:59 | Outpatient (RCR) | payer OTHER, SELFPAY ==
[2024-05-16 09:50] LABS: Glucose 1 Hour PP 50gm Dose 89 mg/dL
[2024-05-16 10:33] LABS: HIV 1/2 Ab P24 Ag Result Negative (Negative)
[2024-05-16 10:44] LABS: Basophils Percent Auto 0.5 % (0.2-1.2); Eosinophils Absolute Auto 0.2 K/mm3 (0-0.3); Eosinophils Percent Auto 1.7 % (0-4.4); Hematocrit 39.1 % (37.0-47.0); Immature Granulocyte Absolute 0.06 K/mm3 (0.00-0.031); Immature Granulocyte Percent A 0.7 % (0-0.5); Lymphocytes Absolute Auto 1.51 K/mm3 (0.9-3.2); Lymphocytes Percent Auto 17.5 % (18.3-44.2); Mean Corpuscular HGB Conc 33.2 g/dl (32-36); Mean Corpuscular Hemoglobin 31.5 pg (26-34); Mean Corpuscular Volume 94.7 fl (80-100); Mean Platelet Volume 10.4 fl (7.4-10.4); Monocytes Absolute Auto 0.6 K/mm3 (0.1-0.6); Monocytes Percent Auto 6.4 % (2.6-8.5); Neutrophils Absolute Auto 6.3 K/mm3 (1.3-6.7); Neutrophils Percent Auto 73.2 % (45.5-73.1); Platelet Count Result 146 k/mm3 (150-375); Red Blood Count 4.13 M/mm3 (4.2-5.4); Red Cell Distribution Width 13.5 % (11.5-14.5); White Blood Count 8.6 K/mm3 (4.5-10.0)
[2024-05-16 10:47] LABS: Rapid Plasma Reagin Non-Reactive (NonReactive)
[2024-05-17] MEDS: RHO(D) IMMUNE GLOBULIN 300 MCG/2 ML SYRINGE IM (16:35)
== END 2024-08-14 23:59 | disposition home or self-care (01) ==
LOC: ANHLAB 07:59
PROVIDERS: PCP Obstetrics & Gynecology; Visit Provider Obstetrics & Gynecology
DX: Z11.4 Encounter for screening for human immunodeficiency virus [HIV] (principal); Z11.3 Encounter for screening for infections with a predominantly sexual mode of transmission; Z29.13 Encounter for prophylactic Rho(D) immune globulin; O36.0190 Maternal care for anti-D [Rh] antibodies, unspecified trimester, not applicable or unspecified; Z3A.00 Weeks of gestation of pregnancy not specified
CPT/HCPCS: 36415; 82947; 85025; 85461; 86592; 86703; 86850; 86900; 86901; 90384; 96372; G0432; J2790

== ENCOUNTER 2024-06-08 12:53 | Outpatient (CLI) | payer OTHER, SELFPAY ==
--- NOTE | ~2024-06-08 | US_ITS ---
EXAMINATION: US OB follow up DATE: 06/08/2024 13:11 INDICATION: Encounter for supervision of normal TECHNIQUE: Real-time ultrasound of the pelvis was performed. The interpreting radiologist was not pre sent for the study. COMPARISON: None. FINDINGS: There is a single living fetus in vertex presentation. The placenta is anterior fundal. heart rate is 154 beats per minute (bpm). The amniotic fluid index is 15.6 cm, which is normal (5th%-95%: 8.8-23.8 cm at 31 weeks estimated gestational age). The following biometric data were obtained: BPD: 8.2 cm -> 33 weeks 1 days Head circumference: 28.9 cm -> 31 weeks 5 days Abdominal circumference: 27.2 cm -> 31 weeks 2 days Femur length: 5.9 cm -> 30 weeks 5 days These measurements are concordant. Head circumference to abdominal circumference ratio: 1.06 (normal range 0.96-1.15). Estimated weight: 1737 g (+/-) 261 g or 3 lbs. 13 oz. (+/-) 9 oz. IMPRESSION: 1. Single living fetus in vertex presentation with heart rate of 154 bpm. 2. Normal amniotic fluid index of 15.6 cm. 3. Estimated weight is 33rd percentile by Hadlock criteria when 08/07/2024 is used as the estim ated date of delivery (CODY). Please correlate with clinical information or earlier ultrasounds for mo st accurate CODY. Reviewed, dictated and finalized at location B. IMPRESSION: 1. Single living fetus in vertex presentation with heart rate of 154 bpm. 2. Normal amniotic fluid index of 15.6 cm. 3. Estimated weight is 33rd percentile by Hadlock criteria when 4 is used as the estimated date of delivery (CODY). Please correlate with clinic al information or earlier ultrasounds for most accurate CODY.
== END 2024-06-08 12:54 | disposition home or self-care (01) ==
LOC: GOSHIMG 12:53
PROVIDERS: PCP Obstetrics & Gynecology; Visit Provider Obstetrics & Gynecology
DX: Z34.90 Encounter for supervision of normal pregnancy, unspecified, unspecified trimester (principal)
CPT/HCPCS: 76816

== ENCOUNTER 2024-07-22 22:43 | Inpatient (IN) | payer OTHER, SELFPAY ==
[2024-07-22] MEDS: LACTATED RINGERS 500 ML 999 ML IV CONT (23:05)
[2024-07-22 23:18] VITALS: BMI 31.2
--- NOTE | 2024-07-22 23:18 | LDADM ---
This patient, Jose Roberto Mohan, was admitted to Labor/Delivery/Recovery 106 on 07/22/24 at 22:43. Plans for labor, pain management and were discussed with patient. Patient/family oriented to hospital policies and general routines including ID bracelet, bed and alarms, visiting hours, pain management, procedures, bathroom and other care routines, personal items, smoking policy, room service/diet and guest tray routines, security routines, and visiting hours. Patient/Family are encouraged to report perceived risks to care and to ask questions if they do not understand what they are told or what they should do. See OBIX for further documentation.
[2024-07-22 23:24] LABS: Basophils Absolute Auto 0.1 K/mm3 (0.0-0.1); Basophils Percent Auto 0.6 % (0.2-1.2); Eosinophils Absolute Auto 0.1 K/mm3 (0-0.3); Eosinophils Percent Auto 1.2 % (0-4.4); Hematocrit 45.7 % (37.0-47.0); Hemoglobin 15.7 g/dL (12.0-15.0); Immature Granulocyte Absolute 0.12 K/mm3 (0.00-0.031); Immature Granulocyte Percent A 1.1 % (0-0.5); Lymphocytes Absolute Auto 3.89 K/mm3 (0.9-3.2); Lymphocytes Percent Auto 35.2 % (18.3-44.2); Mean Corpuscular HGB Conc 34.4 g/dl (32-36); Mean Corpuscular Hemoglobin 31.2 pg (26-34); Mean Corpuscular Volume 90.7 fl (80-100); Mean Platelet Volume 12.1 fl (7.4-10.4); Monocytes Absolute Auto 0.9 K/mm3 (0.1-0.6); Monocytes Percent Auto 7.8 % (2.6-8.5); Neutrophils Percent Auto 54.1 % (45.5-73.1); Nucleated Red Blood Cells Perc 0.2 % (0.0-0.2); Platelet Count Result 183 k/mm3 (150-375); Red Blood Count 5.04 M/mm3 (4.2-5.4); Red Cell Distribution Width 14.5 % (11.5-14.5)
[2024-07-22 23:30] VITALS: BP 123/82; PULSE 105
[2024-07-22 23:59] VITALS: PULSE 106; O2SAT 98
[2024-07-23] VITALS (69 sets, daily range): BP systolic 84–137; BP diastolic 38–110; PULSE 69–168; RESP 12–18; TEMP 36–37.4; O2SAT 97–100
[2024-07-23 00:14] LABS: HIV 1/2 Ab P24 Ag Result Negative (Negative)
[2024-07-23] MEDS: ONDANSETRON INJ 4 MG/2 ML VIAL IV PUSH (00:18)
[2024-07-23 00:26] LABS: Rapid Plasma Reagin Non-Reactive (NonReactive)
--- NOTE | 2024-07-23 00:36 | WPDANESEPP ---
Anes - Eval Pre Procedure Procedure: Labor Epidural Date/Time: 07/23/24 00:36 Surgeon: Balaji Pre Op Diagnosis: Labor Patient Data Age: 34 Gender: F Height: 1.6 m Weight: 80 kg Last Vital Signs Pulse 96 07/23/24 00:36 BP 124/89 07/23/24 00:36 Pulse Ox 99 07/23/24 00:34 O2 Del Method Room Air 07/22/24 23:18 Allergies Allergy/AdvReac Type Severity Reaction Status Date / Time No Known Allergies Allergy Verified 07/22/24 23:31 Home Medications Medication Instructions Recorded Confirmed Type budesonide 32 mcg/actuation nasal 1 spray intranasal DAILY 09/04/21 07/20/24 History spray vit no.95-ferrous 1 tablet PO DAILY 02/03/22 07/20/24 History fumarate 28 mg-folic acid 800 mcg tablet () sertraline 25 mg tablet See Rx Instructions .Route 01/20/24 07/20/24 Rx .COMPLEX #90 tabs aspirin 81 mg tablet,delayed 81 mg PO DAILY 03/23/24 07/20/24 History release (Adult Low Dose Aspirin) doxylamine succinate 25 mg tablet 25 mg PO QHS PRN 03/23/24 07/20/24 History (Unisom (doxylamine)) vitamin d BYMOUTH 06/15/24 07/20/24 History Laboratory Tests 07/22/24 23:17 WBC 11.0 H K/mm3 (4.5-10.0) RBC 5.04 M/mm3 (4.2-5.4) Hgb 15.7 H g/dL (12.0-15.0) Hct 45.7 % (37.0-47.0) MCV 90.7 fl (80-100) MCH 31.2 pg (26-34) MCHC 34.4 g/dl (32-36) RDW 14.5 % (11.5-14.5) Plt Count 183 k/mm3 (150-375) MPV 12.1 H fl (7.4-10.4) Immature Gran % (Auto) 1.1 H % (0-0.5) Neut % (Auto) 54.1 % (45.5-73.1) Lymph % (Auto) 35.2 % (18.3-44.2) [place] % (Auto) 7.8 % (2.6-8.5) Eos % (Auto) 1.2 % (0-4.4) Baso % (Auto) 0.6 % (0.2-1.2) Lymph # (Auto) 3.89 H K/mm3 (0.9-3.2) [place] # (Auto) 0.9 H K/mm3 (0.1-0.6) Eos # (Auto) 0.1 K/mm3 (0-0.3) Baso # (Auto) 0.1 K/mm3 (0.0-0.1) Abs Immat Gran (auto) 0.12 H K/mm3 (0.00-0.031) Absolute Neuts (auto) 6.0 K/mm3 (1.3-6.7) Absolute Nucleated RBC 0.020 H K/mm3 (0.0-0.012) Nucleated RBC % 0.2 % (0.0-0.2) RPR Non-reactive (NonReactive) HIV 1&2 Ab/P24 Ag 4thGn Negative (Negative) Blood Type B Negative Antibody Screen Negative : gestational age (CODY 08/05/24, ) Patient hx anesthesia problems: none Family hx anesthesia problems: none Results Review: All pre-operative results and documents have been reviewed as part of the pre-operative evaluation. FORMERLY [facility], [facility] Past Medical History Medical History Anxiety Surgical History Surgical History H/O foot surgery [place] teeth removed Family History Family History Mother Depression Hypertension Grandparent Malignant neoplasm of prostate Family history of coronary artery disease Hypertension Father Hypertension Atrial fibrillation Social History Social History Smoking status: Never smoker Second hand tobacco smoke exposure: No Substance use: never Substance use type: does not use Do You Feel Safe in your Home?: Yes Lack of Transportation: No Lack of Food: Never True Current Housing: I Have Housing Concerned About Future Housing: No Difficulty Paying Gas/Electric Bills: No Difficulty Paying for Meds: No Currently Unemployed: No Education: Master's Degree or Higher Difficulty w/ Childcare or Family Care: No Living arrangements: with family Occupation/Education: occupation Gender identity (if verbalized by the patient): Female Sexual Orientation (if Verbalized by the Patient): Straight or Heterosexual Spiritual care concerns: No Exam Day of Procedure 07/23/24 00:36 Patient weight: normal Heart: regular rate and rhythm Lungs: normal air movement Airway: Mallampati scale class II Neurological: alert and oriented
[2024-07-23] MEDS: LACTATED RINGERS 1,000 ML 125 ML IV CONT (00:53)
--- NOTE | 2024-07-23 03:17 | WPDHPUPDATE1 ---
History and Physical Update Update Date/Time: 07/23/24 03:17 History and Physical has been reviewed, including an updated exam of the patient. There are NO changes in the patient's condition. Risks, benefits, and alternatives have been discussed and questions answered. Patient agrees to proceed with procedure.
--- NOTE | 2024-07-23 03:17 | WPDOBADMIT ---
Obstetrics - Admit Note Admission Note: record reviewed. No pertinent additions to the history and/or any subsequent changes in the physical findings that are not consistent with the expected course of the were found. Additions to the history and/or subsequent changes in the physical findings follow. None.
--- NOTE | 2024-07-23 03:17 | PM.OBPRVD ---
OB - Vaginal Delivery Note Procedure Delivery date: 07/23/24 Delivery monitor: External FHT and External Uterine Route of delivery: Episiotomy description: None Laceration Description: Perineal - 2nd Degree Delivery repair: chromic Specimen: No Quantitative Blood Loss (ml): 300 Anesthesia type: Epidural Disposition: Floor Complications: No immediate complications Narrative: Patient prepped and draped in the usual manner this procedure. Maternal expulsive vertex over intact perineum. Rest baby was delivered without difficulty. Cord clamped complete placed maternal. Placenta spontaneously. Uterus was well contracted minimal bleeding. Cervix vagina vulva were inspected with second-degree laceration noted. This was repaired using 2-0 chromic in a running interlocking manner to approximate the vaginal mucosa, deep tissue was approximated and a subcuticular layer as well. The incision was hemostatic, uterus again well contracted. Immediate postoperative condition of mother and baby were both excellent. [place] Baby Gestational Age by Date: 38 Infant gender: Female presentation: vertex Placenta delivery description: Spontaneous Cord Vessel Description: 3 Vessels
[2024-07-23] MEDS: OXYTOCIN 30 UNITS/NS 500 ML 30 UNITS/500 ML BAG 125 UNITS IV CONT (03:35)
[2024-07-23] MEDS: WITCH HAZEL 40 PADS 1 PAD TOPICAL (04:16)
[2024-07-23] MEDS: BENZOCAINE 20% AER SPR (*SP) 56 GM CAN 1 SPRAY TOPICAL (04:16)
--- NOTE | 2024-07-23 05:22 | OBPPTRN ---
Patient transferred to post room #285 via w/c. Support person present. Oriented to unit, room, information board, rooming in, admission packet and security measures. Patient verbalizes understanding.
[2024-07-23] MEDS: MULTIVIT/MIN/PREN/FOL AC/IRON TABLET 1 TAB PO (08:47)
[2024-07-23] MEDS: SERTRALINE HCL 25 MG TABLET PO (08:47)
[2024-07-23] MEDS: DOCUSATE SODIUM 100 MG CAPSULE PO (08:47)
[2024-07-23] MEDS: IBUPROFEN 600 MG TABLET PO ×2 (08:49→17:35)
--- NOTE | 2024-07-23 15:32 | PC.NURSE ---
1400. Introductions were made, then consulted with patient to assess needs related to . Mother led the conversation with her?plans to feed?her infant and the?experience so far. Encouraged understanding of the benefits of skin to skin (demonstrating unwrapping infant and placing upright on her chest), stimulating with massage touch, changing positions to encourage wakefulness, how to watch for early feeding cues, responsive feeding, feeding on demand (aiming for 8-12 times in 24 hours, about every 2-3 hours), milk production, building/maintaining a milk supply, duration of feeding, signs of adequate intake/output and how to record on the feeding sheet. Mother works well with her with encouragement and education. Reviewed positioning and ear, shoulder, hip alignment, supporting the breast to facilitate a deep latch, asymmetrical latch (off-center), leading with the chin with a big, open, wide gape and body close to mother. sleepy/reluctant to nurse at this time with no feeding cues present. Mom encouraged to call with infants next fed to have return to check a latch. Mom stated she will plan to call with next latch. Mother voiced understanding of skin to skin, stimulating with massage touch, responsive feedings, hand expressed colostrum, talking to to encourage if it has been 2 -2.5 hours since the start of the last , to call if infant does not latch, or if there is discomfort with . Resources used for education were facilitated with the [visual educational handouts/ tool/mom and baby guide], Inpatient/outpatient resources provided with business card, feeding sheet, name written on the communication board, and the mom/baby guide. Parents voiced understanding of information, demonstrated learning and will call if there is a request for assistance. Reported to the Primary RN.
--- NOTE | 2024-07-23 16:38 | PC.NURSE ---
1605. Mom called to have assess and help with latching . We reviewed s2s, positioning and alignment. Mom works well independently with infant. Multiple attempts made and infant successfully latched to R breast in cross cradle position. Education given to mom on how to listen for swallows and visualize good suckling (with rocking jaw motion). Infant was able to maintain latch without pain to mother. Reviewed hand expression with handout, as well as hunger cues with handout. Moms nippples measured size 18mm bilaterally and mom plans to use her [employer] insurance pump at home. Mom encouraged to use size 24 mm flange at home. Mom verbalized understanding and knows to call if she requires further assistance with latching or has questions. Reported to the Primary RN.
[2024-07-24] MEDS: IBUPROFEN 600 MG TABLET PO ×2 (04:34→13:25)
[2024-07-24] MEDS: FAMOTIDINE 10 MG TABLET PO (04:35)
[2024-07-24 04:58] LABS: Hematocrit 41.8 % (37.0-47.0); Hemoglobin 13.9 g/dL (12.0-15.0)
[2024-07-24 07:50] VITALS: BP 114/72; PULSE 78; RESP 16; TEMP 36.3; O2SAT 99
--- NOTE | 2024-07-24 07:52 | P.DS_ITS ---
DS: Admitting Diagnosis Discharge Date 07/24/2024 Admitting Diagnosis DS: Discharge Diagnosis Discharge Diagnosis (1) , delivered: Code(s): O80 - Encounter for full-term uncomplicated delivery Status: Acute OB - DS: Summary OB Procedures : None OB Procedures Intrapartum: Spontaneous Vag Delivery OB Procedures: : None Peripartum Data Laceration Description: Perineal - 2nd Degree Episiotomy description: None Time Spent with Patient Time attestation: Total time spent providing and/or coordinating discharge services: DS: Data Data Completed and Pending Labs on day of discharge: Labs from last 24 hours 07/24/24 04:03 Hgb 13.9 Hct 41.8 Discharge Plan Discharge Discharging Clinician: August Weaver Patient Disposition: Home, Self-Care Activity: as tolerated Diet: as tolerated Patient Instructions: Antibiotic Form Stand Alone Forms: General Discharge Information Follow-up/Referrals: Ivania Carpio MD [Physician] - 3 Weeks Discharge Medications: New ibuprofen 600 mg Tablet 600 mg PO Q6H PRN (Reason: Cramping) Qty: 30 0RF Continued budesonide 32 mcg/actuation spray,non-aerosol 1 spray intranasal DAILY Rx Instructions: administer into each nostril Unisom (doxylamine) 25 mg tablet 25 mg PO QHS PRN vitamin d [facility] cmb#95-ferrous fumarate-FA [] 28 mg iron- 800 mcg Tablet 1 tablet PO DAILY sertraline 25 mg tablet See Rx Instructions .ROUTE .COMPLEX Qty: 90 1RF Dose Instruction: TAKE 1 TABLET BY MOUTH DAILY Rx Instructions: TAKE 1 TABLET BY MOUTH DAILY Discontinued aspirin [Adult Low Dose Aspirin] 81 mg tablet,delayed release (DR/EC) 81 mg PO DAILY Date of admission: 07/22/24 22:43 Primary Care Provider: UNKNOWN,DOCTOR Admitting Provider: Ivania Carpio Attending physician on admission: Ivania Carpio Condition: Stable
[2024-07-24 08:00] VITALS: PULSE 78; RESP 16; O2SAT 99
[2024-07-24] MEDS: DOCUSATE SODIUM 100 MG CAPSULE PO (08:45)
[2024-07-24] MEDS: SERTRALINE HCL 25 MG TABLET PO (08:45)
[2024-07-24] MEDS: MULTIVIT/MIN/PREN/FOL AC/IRON TABLET 1 TAB PO (08:45)
--- NOTE | 2024-07-24 09:20 | PC.NURSE ---
Introductions were made, then consulted with patient to assess needs related to . Discussed with mother her?plans to feed?her and the?experience so far. Mother had just finished a few minutes ago and will call out with the next feeding, she would like for the RN to check baby's latch before she goes home today. Resources provided for inpatient and outpatient services with the feeding sheet, mom/baby guide and name written on the communication board. Mother voiced understanding of information and will call if there is a request for assistance. Reported to the Primary RN.
--- NOTE | 2024-07-24 11:56 | PC.NURSE ---
[phone] Mother called out she had baby skin to skin and wanted RN to assess her latch. Discussed with mother her successes, concerns and any questions she has. We reviewed working with the , supporting breast, protecting her nipples with an optimal deep latch, good positioning, and good hand washing. Encouraged understanding the benefits of skin to skin, responding to feeding cues, frequencies of feeding 8-12 times in 24 hours (approximately 2-3 hours), duration of feedings, milk production, intake/output feeding sheet and signs of adequate intake encouraging swallowing at the breast. Reviewed positioning and alignment, supporting breast, off-centered (asymmetrical latch) and leading with the chin with big, open, wide gape. latched optimally to the left breast in cradle position. Education given to the mother of how to visualize the suckling (with good rocking jaw motion) swallows (dropping of the lower jaw) and how to listen for drinking at the breast (the ka sound). The infant was able to maintain latch without discomfort to mother. Nipple care reviewed with optimal latch, good positioning and using clean hands when touching her breast. Resources used to facilitate learning were used from the visual handouts and the mom and baby guide. Mother voiced understanding of the education shared, to call for assistance if the does not latch or if there is discomfort with . Reported to the Primary RN.
--- NOTE | 2024-07-24 15:15 | PC.NURSE ---
1000-Patient was given the opportunity to view the discharge video Mother & Baby Care, The First Two Weeks and to ask questions. Patient declined viewing the video and has been given the mother/baby guide for home reference.
[2024-07-25 13:47] VITALS: BP 128/76; PULSE 102; RESP 18; TEMP 36.7; O2SAT 100
== END 2024-07-24 14:20 | disposition home or self-care (01) | DRG 807 ==
LOC: ANHLDR 23:26 → ANHOB2 07-24 07:53 → ANHLDR 07-27 08:21
PROVIDERS: Admitting Provider Obstetrics & Gynecology; Visit Provider Obstetrics & Gynecology
DX: O70.1 Second degree perineal laceration during delivery (principal); Z37.0 Single live birth; Z3A.38 38 weeks gestation of pregnancy
CPT/HCPCS: 36415; 85014; 85018; 85025; 86592; 86703; 86850; 86900; 86901; A9270; G0432; J2405; J2590; J2795; J7120

== ENCOUNTER 2025-07-22 09:04 | Outpatient (CLI) | payer OTHER, SELFPAY ==
--- OUTSIDE RECORDS SUMMARY | 2025-07-22 09:32 | XMS_ITS | Clinical Summary ---
Author Organization [facility] Address [address] [place] [id number] Care Team Providers Care Sole Scraper Name Role Phone Jean-Claude Rodriguez MD Primary Care Provider [phone] Allergies No known active allergies Medications sertraline (ZOLOFT) 25 mg tabletIndicatio ns:Anxiety with Depression Take 1 tablet (25 mg total) by mouth nightly 0 Active vit 80-frti-ulpjr-d vines 27mg iron- 800 mcg-250 mg capsule Take 1 tablet by mouth nightly Active levocetirizine (XYZAL) 5 mg tabletIndicatio ns:Allergic Rhinitis Take 1 tablet (5 mg total) by mouth every evening Active aspirin 325 mg enteric coated tablet Take 1 tablet (325 mg total) by mouth daily 30 tablet 11 0 Active Additional Information Patient not taking.Reported on 08/08/2020 ketorolac (TORADOL) 10 mg tablet Take 1 tablet (10 mg total) by mouth every 6 (six) hours as needed for pain 16 tablet 0 Active Additional Information Patient not taking.Reported on 08/08/2020 HYDROcodone-bassam taminophen (NORCO) 5-325 mg per tabletIndicatio ns:Pain Take 1 tablet by mouth every 6 (six) hours as needed (as needed for pain) 25 tablet 0 Active Additional Information Patient not taking.Reported on 08/08/2020 Active Problems Problem Noted Date Diagnosed Date Painful orthopaedic hardware 07/06/2020 Overview (07/06/2020): Added automatically from request for surgery [id number] Surgical History Surgery Date Site/Laterality Comments FOOT SURGERY left foot- 2019 REFRACTIVE SURGERY bilateral WISDOM TOOTH EXTRACTION Medical History Medical History Date Comments Anxiety GERD (gastroesophageal reflux disease) Allergic rhinitis Family History Medical History Relation Name Comments Hypertension Father Arthritis Mother Hypertension Mother Anesthesia problems Neg Hx Relation Name Status Comments Father Mother Social History Tobacco Use Types Packs/Day Years Used Date Smoking Tobacco: Never Smokeless Tobacco: Never Tobacco Cessation:Counseling Given: Not Answered Alcohol Use Standard Drinks/Week Comments Yes 2 (1 standard drink = 0.6 oz pur e alcohol) Personal Safety Answer Date Recorded Getting School Help Needed Not on file 11/25 Comments No Sex and Gender Information Value Date Recorded Sex Assigned at Not on file Legal Sex Female 10:11 AM CDT Gender Identity Not on file Sexual Orientation Not on file Obstetrics History Last Filed Vital Signs Vital Sign Reading Time Taken Comments Blood Pressure 110/74 11/26/2023 6:50 PM [employer] Pulse 122 11/26/2023 6:50 PM [employer] Temperature 37.4 C (99.4 F) 11/26/2023 6:50 PM [employer] Respiratory Rate 20 11/26/2023 6:50 PM [employer] Oxygen Saturation 98% 11/26/2023 6:50 PM [employer] Inhaled Oxygen Concentration - - Weight 63.5 kg (140 lb) 11/26/2023 6:50 PM [employer] Height 160 cm (5' 3) 11/26/2023 6:50 PM [employer] Body Mass Index 24.8 11/26/2023 6:50 PM [employer] Plan of Treatment Health Maintenance Due Date Last Done Comments Cervical Cancer Screening 1991 Depression Screening 1991 Hepatitis C Screening 1991 DTaP/Tdap/Td Vaccine (1 - Tdap) 2002 Varicella Vaccines (1 of 2 - 13+ 2-dose series) 2004 Hepatitis B Screening 2009 Regular Well Visit/Exam 18-64 2009 HPV Vaccines (1 - 3-dose SCD M series) 2018 Influenza Vaccine (#1) 2025 0, 07/20/2019, 07/23/2018 Pneumococcal vaccine <65 Aged Out No longer eligible based on patient's age to complete this topic Insurance [facility] Address: [place] [address] [facility] Address: [place] [address] [employer] [id number] [facility] [facility] [employer] Address: [address] [address] [place] [address] Care Teams Sole Scraper Relationship Specialty Start Date End Date Jean-Claude Rodriguez MD [address] [place] [address] [address] PCP - General Family Medicine 11/26/23
[2025-07-22 19:06] LABS: Hematocrit 42.6 % (37.0-47.0); Hemoglobin 13.8 g/dL (12.0-15.0); Mean Corpuscular HGB Conc 32.4 g/dl (32-36); Mean Corpuscular Hemoglobin 29.6 pg (26-34); Mean Corpuscular Volume 91.2 fl (80-100); Platelet Count Result 181 k/mm3 (150-375); Red Blood Count 4.67 M/mm3 (4.2-5.4); White Blood Count 6.0 K/mm3 (4.5-10.0)
[2025-07-22 19:17] LABS: Alanine Aminotransferase 19 U/L (6-35); Albumin Level 4.3 g/dL (3.5-5.1); Alkaline Phosphatase 95 U/L (38-126); Anion Gap 6 mmol/L (4-12); Aspartate Amino Transferase 43 U/L (14-36); Bilirubin,Total 0.6 mg/dL (0.2-1.3); Blood Urea Nitrogen 23 mg/dL (7-17); Calcium 9.1 mg/dL (8.4-10.2); Carbon Dioxide 29 mmol/L (22-30); Chloride 102 mmol/L (98-107); Cholesterol 196 mg/dL (0-200); Estimated Glomerular Filt Rate > 60; Glucose 72 mg/dL (65-110); HDL Direct 73 mg/dL; Potassium 4.3 mmol/L (3.4-5.0); Sodium 137 mmol/L (137-145); Total Protein 7.3 g/dL (6.3-8.2); Triglycerides 50 mg/dL (<150)
[2025-07-22 20:10] LABS: Thyroid Stimulating Hormone 2.280 uIU/mL (0.465-4.680)
== END 2025-07-22 09:05 | disposition home or self-care (01) ==
LOC: ANHGOSHLAB 09:05
PROVIDERS: PCP Family Medicine; Visit Provider Nurse Practitioner
DX: E55.9 Vitamin D deficiency, unspecified (principal); Z76.89 Persons encountering health services in other specified circumstances
CPT/HCPCS: 36415; 80053; 80061; 82306; 84443; 85027

== ENCOUNTER 2025-08-27 11:02 | Outpatient (CLI) | payer OTHER, SELFPAY ==
[2025-08-27 15:16] LABS: Alanine Aminotransferase 17 U/L (6-35); Albumin Level 4.4 g/dL (3.5-5.1); Alkaline Phosphatase 95 U/L (38-126); Anion Gap 4 mmol/L (4-12); Aspartate Amino Transferase 29 U/L (14-36); Bilirubin,Total 0.5 mg/dL (0.2-1.3); Blood Urea Nitrogen 21 mg/dL (7-17); Calcium 9.4 mg/dL (8.4-10.2); Carbon Dioxide 26 mmol/L (22-30); Chloride 105 mmol/L (98-107); Estimated Glomerular Filt Rate > 60; Glucose 87 mg/dL (65-110); Potassium 4.9 mmol/L (3.4-5.0); Sodium 135 mmol/L (137-145); Total Protein 7.5 g/dL (6.3-8.2)
== END 2025-08-27 11:03 | disposition home or self-care (01) ==
LOC: ANHGOSHLAB 11:03
PROVIDERS: PCP Family Medicine; Visit Provider Family Medicine
DX: R74.01 Elevation of levels of liver transaminase levels (principal)
CPT/HCPCS: 36415; 80053